=== PATIENT | female | born 1955 | race Caucasian/White ===

== ENCOUNTER 2024-04-16 14:30 | Emergency (ER) | payer MEDICARE, OTHER, SELFPAY ==
[2024-04-16] VITALS (9 sets, daily range): BP systolic 92–109; BP diastolic 38–72; PULSE 103–109; BMI 39.5
[2024-04-16 15:05] LABS: % Basophils 0.2 % (0-2); % Immature Granulocytes 0.5 % (0-0.5); % Monocytes 3.5 % (1.7-9.3); % Neutrophils 87.8 % (42.2-75.2); Absolute Eosinophils 0.4 10^3/uL (0-0.7); Absolute Immature Granulocytes 0.1 10^3/uL (0-0.05); Absolute Lymphocytes 0.7 10^3/uL (1.2-3.4); Absolute Monocytes 0.5 10^3/uL (0.1-0.6); Absolute Neutrophils 11.6 10^3/uL (1.4-6.5); Hematocrit 39.1 % (37.0-47.0); Hemoglobin 13.3 g/dL (12.0-16.0); Mean Corpuscular Hgb 32.1 pg (27.0-31.0); Mean Corpuscular Volume 94.4 fL (81.0-99.0); Mean Platelet Volume 9.7 fL (7.4-10.4); Nucleated Red Blood Cells % 0 %; Platelet Count 345 10^3/uL (130-400); Red Blood Cell Count 4.14 10^6/uL (4.20-5.40); White Blood Cell Count 13.2 10^3/uL (4.8-10.8)
[2024-04-16 15:15] LABS: INR 1.84; PT 21.1 Sec (11.4-14.6)
[2024-04-16 15:24] LABS: ALT (SGPT) 14 U/L (0-35); AST (SGOT) 27 U/L (14-36); Alkaline Phosphatase 74 U/L (38-126); Blood Urea Nitrogen 15 mg/dl (7-17); Calcium 9.4 mg/dl (8.4-10.2); Carbon Dioxide 26 mmol/L (22-30); Chloride 100 mmol/L (98-107); Estimated Creatinine Clearance 60 ml/min; Glucose 160 mg/dl (70-99); Sodium 140 mmol/L (135-145); Total Bilirubin 1.1 mg/dl (0.2-1.3); Total Protein 6.9 g/dl (6.3-8.2); eGFR > 60.00
--- NOTE | 2024-04-16 15:29 | ED.GENMED ---
History of Present Illness
General
Chief Complaint: Dizziness
Source: patient and ambulance crew
Exam Limitations: none
Time Seen by Provider: 04/16/24 15:01
Nursing documentation reviewed up to this point in time: agreed with
History of Present Illness
History of Present Illness:
pt is a 68 y/o F with h/o afib on coumadin, metoprolol 100 mg tart TID up until recently told to change to BID
near syncope/syncope today after eating at a diner
stood up and felt lightheaded and went to the ground
thinks she may have briefly lost consciousness, but didn't hit her head, was on her buttocks
she wa hypotensive for EMS 80s/50s
pt feels better now
she had similar event
took her metoprolol 6 days ago, walked upstiars at home and then passed out on the way down the steps , 10 steps
was a trauma at [facility]
no ICH, but facical contusion/bruising, no fractures
was admitted for 2 days and was told she was in afib then as well
she was told to dec her metoprolol and also check her bp before taking it which she hasn't done
she has not been weighing herself daily
she does have h/o CHF
has had some bruising inccreased in LLE new from the injury
also has an itchy rash which devleoped while at [facility] and she says that she has had this rash before 'heat rash from being in the hospital'
Phy Exam
Physical Exam
Physical Exam:
GENERAL: Alert , in no apparent distress
HEAD: R sided facial swelling/bruising old, frontal/ofrehead around righ teye and face
NECK: no midline tenderness, active ROM intact, no paraspinal muscle tenderness;
EYE: pupils equal and reactive, EOMs intact.
ENT: o/p clr, mmm. no hemotympanum
CARDIAC: Regular rate and rhythm, no edema
LUNGS: Clear breath sounds bilaterally, no acute respiratory distress, no wheezes/rales/rhonchi
ABDOMEN: Soft, without focal tenderness, no r/g, no cvat
NEUROLOGICAL: Alert and oriented, no focal neuro deficits, CN intact, 5/5 strength, sensation intact,
SKIN: Warm and dry, bruising right face, right UE; LLE with mild tenderness to LLE
MUSCULOSKELETAL: left lower leg swelling, contusino, firm, laterally and anterior lower leg
soft compartment
normal ankle ROM
PSYCH: Normal and appropriate interaction.
Course
Orders/Labs/Results
Orders:
Orders
04/16/24 14:32
ECG [Electrocardiogram (*1)] Urgent
Reason for Study: Syncope
04/16/24 14:33
EKG- Treatment ONCE
04/16/24 14:36
Complete Blood Count/With Diff Urgent
Comprehensive Metabolic Panel Urgent
INR [Prothrombin Time] Urgent
NT-proBNP Urgent
Comment: ADD ON
Troponin I Urgent
04/16/24 15:24
Add On- LAB Urgent
Tests Added?: bnp
CR Chest - 2 Views Urgent
Comment:
Reason For Exam: syncope
Tib/Fib, Left 2 View [CR Leg Tibia/fibula Left 2 Vw] Urgent
Comment:
Reason For Exam: left leg bruising
Venous Doppler Lwr Ext Left [US Periph Venous LOWER Ext LT] Urgent
Comment:
Reason For Exam: left calf swelling
04/16/24 15:25
0.9% Sodium Chloride 500 ml [Nss] 500 ml IV BOLUS
04/16/24 15:43
COVID-19 Antigen Urgent
Source: Nasal Swab
Abnormal Lab Results
04/16/24
14:36
WBC 13.2 H 10^3/uL
(4.8-10.8)
RBC 4.14 L 10^6/uL
(4.20-5.40)
MCH 32.1 H pg
(27.0-31.0)
Abs Immat Gran (auto) 0.1 H 10^3/uL
(0-0.05)
Absolute Neuts (auto) 11.6 H 10^3/uL
(1.4-6.5)
Absolute Lymphs (auto) 0.7 L 10^3/uL
(1.2-3.4)
Neutrophils % 87.8 H %
(42.2-75.2)
Lymphocytes % 5.0 L %
(20.5-51.1)
PT 21.1 H Sec
(11.4-14.6)
Glucose 160 H mg/dl
(70-99)
04/16/24 14:36
04/16/24 14:36
Vital Signs
Initial and Last Documented VS:
Initial Vital Signs
BP
109/72
04/16/24 14:32
Last Documented Vital Signs
Temp Pulse Resp BP Pulse Ox
98.0 F 112 19 97/48 96
04/16/24 14:34 04/16/24 18:00 04/16/24 18:00 04/16/24 17:34 04/16/24 18:00
MDM/Problems Addressed
Differential Diagnosis Includes:
syncope, near syncope, hypotension
MDM/Problems Addressed:
68 y/o F
near syncope todya associated with standing
[facility] admission for same after falling down steps, had low bp and afib, is on AC;
was hopsitlized on tele with no events but was told to back down on her metoprolol which she had been taking 3 times a day to twice a day which she has done but she was supposed to be monitoring her bp number and holding if too low
she hasn't been doin that
took her bp med this evening and went to stand up a nearly passed out again but was able to get to the ground uninjured
she was hypotensive for ems but improved with NS
she feels well now
afib rate 90-100s
no resp distress
no signs of failure but she does have swelling L calf which was likely from preivous trauma/hs a conutsion
is on warfarin, inr 1.84
dvt study neg
pt was ble to stand and had same bp as lying and felt well
she was offered obs admission but she would prefer to go home
i discussed with dr. salgado
i also offered to call the observer helper she sees but she would like to do that
she will for now back down to half of her metorpolol 50 mg bid
appreciate minimal leukrcytosis which isp robably related to previous fall
*Critical Care Note
Total Time (30-74mins, 75-104mins- exclusive of procedures): Not Applicable
ED Attending Note
-
Portions of this chart may have been created with voice recognition software.� Occasional wrong word or��sound alike� substitutions may have occurred due to the inherent limitations of voice recognition software.
Discharge Plan
Departure
Patient Disposition: Home (Routine Discharge)
Date of Disposition: 04/16/24
Time of Disposition: 17:59
Patient with high blood pressure during this ER visit?: No
Condition: Fair
Covid-19: Not Applicable
Discharge Problem:
Near syncope, Orthostatic hypotension
Instructions: Orthostatic hypotension, Dizziness, Nonvertigo, (DC)
Referrals:
Edilson Mejia I., DO [Family Provider] - Follow up in 2-3 days
Activity Restrictions/Additional Instructions:
Your blood pressure was low for EMS but it did come up with some fluids. You do need to make sure you stay hydrated but also you need to cut your metoprolol in half and do 50 mg twice a day as needed . Is very concerning that this keeps happening
to you. Please call your observer helper on Thursday for further instructions. You should check your blood pressure before taking your blood pressure medication and if it is under 110 you should not take it. Please be cautious with standing. Return
for any concerns like passing out, chest pain etc.
Interventions
Interventions:
*Risk Screen - Suicide Last Done: 04/16/24 14:41
*General Assessment Last Done: 04/16/24 14:41
*Neglect/Abuse Screening Last Done: 04/16/24 14:41
*Nursing Disposition Last Done: 04/16/24 18:49
ED- Neurological Assessment Last Done: 04/16/24 14:41
ED- Cardiac Assessment Last Done: 04/16/24 14:41
ED Swallowing Screen Last Done: 04/16/24 14:41
Discharge Date and Time
Discharge Date/Time: 04/16/24 18:54
Print Language: THAI
[2024-04-16 15:36] LABS: Troponin I < 0.012 ng/ml
[2024-04-16] MEDS: NSS 500 IV (15:41)
[2024-04-16 15:50] LABS: NT-proBNP 1570 pg/ml
[2024-04-16 16:02] LABS: COVID-19 Antigen Negative (Negative)
== END 2024-04-16 18:54 | disposition home or self-care (01) ==
LOC: EMR 14:30
PROVIDERS: Emergency Medicine; Physician Assistant; EMERGENCY PHYSICIAN Emergency Medicine; FAMILY PHYSICIAN Internal Medicine
DX: R55 Syncope and collapse (principal); I95.1 Orthostatic hypotension; R60.0 Localized edema; W19.XXXA Unspecified fall, initial encounter; Y92.511 Restaurant or cafe as the place of occurrence of the external cause; Z11.52 Encounter for screening for COVID-19; I11.0 Hypertensive heart disease with heart failure; I50.9 Heart failure, unspecified; R56.9 Unspecified convulsions; E78.5 Hyperlipidemia, unspecified; K52.9 Noninfective gastroenteritis and colitis, unspecified; E03.9 Hypothyroidism, unspecified; D64.9 Anemia, unspecified; I25.2 Old myocardial infarction; Z79.01 Long term (current) use of anticoagulants
CPT/HCPCS: 71046; 73590; 80053; 83880; 84484; 85025; 85610; 87811; 93005; 93971; 99285